=== PATIENT | female | born 1970 | race American Indian/Alaskan Native ===

== ENCOUNTER 2017-07-18 06:09 | Day surgery (SDC) | payer OTHER ==
[2017-07-11 14:17] VITALS: BMI 30.2
[2017-07-18] MEDS ORDERED: Lactated Ringer's 1,000 ML IV ONE ×2 (07:00→08:55)
[2017-07-18] MEDS ORDERED: ceFAZolin IV 2 gm in Dextrose 2 GM/50 ML BAG IVPB ONE (07:16)
[2017-07-18] MEDS ORDERED: Bupivacaine 0.5% Inj(30mL) IJ ONE (07:16)
[2017-07-18] MEDS ORDERED: Lidocaine 1% Inj (20ml) IJ ONE (07:16)
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
--- NOTE | 2017-07-18 07:22 | CP.SDSHP ---
Same Day Surgery H & P - History Proposed Procedure: left ankle fibula ORIF, Brostrum Raymundo procedure - Previous Medical/Surgical History Cardiac: Hypertension Previous Surgical History: none - Allergies Allergies: Allergies No Known Allergies Allergy (Verified 07/11/17 14:17) - Physical Exam General Appearance: well nourished, in NAD Vital Signs: Vital Signs 07/18/17 07/18/17 06:36 06:39 Temperature 98.6 F Pulse Rate 108 H 108 H Respiratory 20 Rate Blood Pressure 129/89 O2 Sat by Pulse 100 Oximetry Mental Status: Alert & Oriented x3 Neuro: WNL - {Optional Preform as Required} Integument: WNL Ortho: Other (tenderness elicited on left active ankle dorsiflexion and plantarflexion) - Impression Impression: Pt was seen and examined in SDS. Pt NPO status was confirmed. All pre-op testing and clearance in chart. Pt has exhausted all conservative treatment at this time and is opting for surgical intervention. Pt was explained procedure and post-operative course. All pt's questions were answered to satisfaction. No guarantees were made. Pt understands all risks, benefits and complications of procedure. Pt will follow-up with Dr. Flynn within 1 week of surgery Short Stay Discharge - Short Stay Discharge Admitting Diagnosis/Reason for Visit: S93.936D/M91.897H Disposition: HOME/ ROUTINE Referrals: Cherry Cade MD [Primary Care Provider] - Instructions: Cephalexin (By mouth), Acetaminophen/Codeine (By mouth), RICE Therapy (GEN) Additional Instructions (Diet, Activity): -Patient in good/stable condition for discharge home -Pt to resume medications per medical reconciliation -Resume regular diet Please keep dressing clean, dry, & intact to surgical site -Use plastic bag over bandage for showering -Wear post op shoe at all times when ambulating -Call clinic if you seesigns of infection (redness, swelling, malodor) -Please make an appointment to see Dr. Flynn in office/clinic within 1 week for post-op check Progress Note/Discharge Note with Instructions: - Patient evaluated bedside in recovery s/p surgical procedure. - After surgical procedure patient in NAD - (+) Void, (+) Appetite - Capillary refill time <3s and NVSI intact. - Patient denies complaints at this time - Post operative instructions and plan of care explained to patient at length. - Pt. acknowledges understanding. - Patient stable for DC per podiatric surgery
[2017-07-18] MEDS ORDERED: Midazolam 2 MG/2 ML VIAL ONE (07:23)
[2017-07-18] MEDS ORDERED: Propofol 10 mg/ml Inj (20 ML) ONE (07:23)
[2017-07-18] MEDS ORDERED: ePHEDrine 50 mg/ml Inj ONE (07:23)
[2017-07-18] MEDS ORDERED: Rocuronium 10 mg/ml (5 ml) ONE (07:24)
[2017-07-18] MEDS ORDERED: Lidocaine 4% (Laryng-O-Jet) Kit MM ONE (07:24)
[2017-07-18] MEDS ORDERED: Succinylcholine 200 mg/10 ml Inj IV ONE (07:24)
[2017-07-18] MEDS ORDERED: Ropivacaine 0.5% 30ML IV ONE (07:27)
[2017-07-18] MEDS ORDERED: ceFAZolin IV 1 gm in Dextrose 2 GM/100 ML BAG IVPB ONE (07:29)
[2017-07-18] MEDS ORDERED: Sodium Chloride 0.9% 1,000 ML IV SCH (07:30)
[2017-07-18] MEDS ORDERED: Dexamethasone 4 mg/1 ml ONE (08:27)
[2017-07-18] MEDS ORDERED: Sevoflurane - Inhalation Anesthetic Liq (250 ml) ONE (08:36)
[2017-07-18] MEDS ORDERED: Bupivacaine 0.5% Inj(30mL) ONE (10:12)
--- NOTE | 2017-07-18 10:48 | PCM.SURG1 ---
Surgeon's Initial Post Op Note - Surgeon's Notes Surgeon: Dr. Rico Flynn Shank Sander: Shahram Prince PGY-3, Thania Sharpe PGY-2, Jonathan Sue PGY-1 Type of Anesthesia: Block Regional Anesthesia Administered By: Dr. Velasquez Pre-Operative Diagnosis: left lateral ankle ligament tear, left fibula fracture Operative Findings: see operative report. I: 20cc 0.5% Marcaine postoperatively. M: 2-0 fiberwire, 3-0 Vicryl, 4-0 Vicryl, 2-0 Nylon, bone DMX 2.5, 6 hole fibular plate - screw sizes 3.5x12, 4.0x18, two 3.5x10 Post-Operative Diagnosis: same Operation Performed: left lateral ankle stabilization with Brostrum Raymundo procedure, left fibula open reduction and internal fixation Specimen/Specimens Removed: none Estimated Blood Loss: EBL {In ML}: 5 Blood Products Given: N/A Drains Used: No Drains Post-Op Condition: Good Date of Surgery/Procedure: 07/18/17 Time of Surgery/Procedure: 08:30
[2017-07-18] MEDS ORDERED: Acetaminophen-Codeine 300/30 mg Tab PO PRN (10:49)
[2017-07-18] MEDS ORDERED: HYDROmorphone 0.5 mg/0.5 ml ISec IVP PRN (11:05)
--- NOTE | 2017-07-18 11:07 | PCM.ANESB2 ---
Popliteal Nerve Block - Popliteal Nerve Block Date of Procedure: 07/18/17 Anesthesiologist: Eva Pre-Procedure Diagnosis: Left ankle fracture Post-Procedure Diagnosis: Left ankle fracture Procedure Performed: Popliteal Nerve Block Left - Procedure Popliteal Nerve Block: This procedure was explained to the patient that it is for post-operative pain management. Consent was obtained after a thorough discussion with the patient regarding the benefits and possible complications of local anesthetic block of the sciatic nerve at the popliteal level. The patient was brought to the operating room and standard monitors are applied. Time-out was held with the circulating nurse to confirm the correct surgery and the appropriate block. After applying oxygen by nasal cannula and administering IV Sedation, patient's operative leg was gently raised and supported and the groove in between the biceps femoris and vastus lateralis muscles was carefully palpated. The skin approximately 8cm above the popliteal crease was then marked. The ultrasound transducer was then applied to the posterior thigh approximately 8cm above the popliteal crease in the transverse plane and the sciatic nerve before its division was visualized lateral to the popliteal artery and in between the bicep femoris and semimembranosus/semitendinosus muscles. After identification, the lateral portion of the thigh was prepped with Betadine solution three times and Lidocaine 1% was injected subcutaneously for topical anesthesia. At this point, a # 21 gauge Stimuplex insulated 4 inch needle was inserted into pre-marked area and advanced in a perpendicular direction. The needle was inserted above the ultrasound transducer in-plane towards the sciatic nerve in a [id number] direction. Needle advancement was performed carefully under direct ultrasound visualization. Nerve stimulator was used and dorsiflexion of the left foot was elicited at a current of 0.3 MA. After repeated negative aspiration,20 cc of 0.25 % Bupivicaine with epinephrine was injected. Under ultrasound guidance the local anesthetics were observed surrounding sciatic nerve . The needle was removed intact and sterile dressing was applied. The patient tolerated the popliteal nerve block well with stable vital signs and was subsequently prepared for the surgery.
[2017-07-18] MEDS ORDERED: Lactated Ringer's 1,000 ML IV SCH (11:15)
[2017-07-18 12:52] VITALS: RESP 18
[2017-07-18 13:41] VITALS: O2SAT 100
--- NOTE | 2017-07-18 14:14 | RAD ---
PROCEDURE: Internal fixation HISTORY: LEFT ANKLE ORIF COMPARISON: None TECHNIQUE: Submitted images from the current procedure: 4.0 FINDINGS: IMPRESSION: Total fluoroscopic time (continuous mode) utilized during the procedure: 31.4 seconds.
[2017-07-18 16:05] VITALS: BP 109/64; PULSE 100; TEMP 98.2
--- NOTE | 2017-07-18 17:43 | RAD ---
PROCEDURE: Left Ankle Radiographs. HISTORY: s/p left ankle surgery COMPARISON: None FINDINGS: BONES: Satisfactory alignment of major fracture fragments distal left fibula. No evidence of orthopedic hardware failure. JOINTS: Normal. No osteoarthritis. Ankle mortise maintained. Talar dome intact SOFT TISSUES: Normal. OTHER FINDINGS: None. IMPRESSION: Satisfactory postoperative status. No evidence of orthopedic hardware failure. Limitations of the current study: Detail obscured by overlying fiberglass cast.
--- NOTE | 2017-07-24 07:49 | OP ---
PROCEDURE DATE: 07/18/2017 PREOPERATIVE DIAGNOSES: 1. Left ankle fibular fracture. 2. Left ankle, lateral ankle sprain. POSTOPERATIVE DIAGNOSES: 1. Left ankle fibular fracture. 2. Left ankle, lateral ankle sprain. PROCEDURE: 1. Left ankle fibular fracture open reduction and internal fixation. 2. Left ankle open repair of lateral ankle ligament. SURGEON: Rico Flynn DPM SUPPLY REQUIREMENTS OFFICER: 1. Dr. Shharam Prince, PGY-3. 2. Dr. Thania Sharpe, PGY-2. 3. Dr. Jonathan Sue, PGY-1. TYPE OF ANESTHESIA: General sedation. INDICATIONS: This patient is a 46-year-old female with the aforementioned diagnoses. The patient was seen by Dr. Flynn in his office where she has been treated on an outpatient basis after suffering a traumatic left ankle injury. The patient seeks surgical intervention at this time. All alternatives, benefits, complications, and risks of surgical procedure were explained to the patient at length. The patient verbalized understanding and wished to proceed. All questions were addressed and answered. No guarantees were given nor implied. The consent was signed, and n.p.o. status was confirmed prior to bringing the patient to the operating room. OPERATIVE PROCEDURE: The patient was brought to the operating room and placed on the operating room table in the supine position. A pneumatic thigh tourniquet was placed around the patient's left thigh. After induction of general sedation, the left leg and ankle were then prepped and draped in the normal sterile manner and the procedure began. PROCEDURE #1: Left ankle open reduction and internal fixation of fibular fracture. Attention was directed to the lateral aspect of the patient's left ankle where a linear longitudinal incision was made with a 15-blade directly overlying the distal aspect of the fibula. Dissection was then carried down to the superficial and subcutaneous tissue utilizing sharp and blunt dissection. Care was taken to retract all vital neurovascular structures throughout the duration of the procedure. All superficial bleeding vessels were cauterized utilizing electrocautery. At this time, intraoperative fluoroscopy was utilized to locate the level of the fracture. The fracture through fibula was noted to be transverse in orientation. Dissection was then carried down to the level of the periosteum, and a #15 blade was utilized to make a linear longitudinal incision through the periosteum overlying the distal aspect of the fibula. Next, utilizing a Dobbs elevator and #15 blade, the periosteum were freed from the distal aspect of the fibula. At this time, the fracture site could be clearly visualized. The fracture site was then cleared of any bony or soft tissue debris utilizing a dental pick and curette. The fracture site was then flushed with copious amounts of sterile normal saline. Next, utilizing 2 bone clamps, the fibular fracture was pulled out to length and rotated back in an anatomical alignment and temporarily clamped. Intraoperative fluoroscopy was then utilized to confirm appropriate reduction of the fracture. Because of the transverse orientation of the fracture site, it was noted that interfragmentary screw could not be utilized in this case. Next, a Synthes 6-hole 1/3 tubular plate was applied to the lateral aspect of the fibula spanning the fracture. First, the plate was fixated to the proximal fracture fragment using a 3.5 mm fully threaded cortical screw. The fracture was then fixated through the distal fracture fragment in the distal most plate hole utilizing a 4.0 mm fully threaded cancellous screw. Intraoperative fluoroscopy was then again utilized and it was noted at this time that the plate and screws were in appropriate anatomic location and the fracture site had been adequately reduced. Next, the second plate hole distal to the fracture site was attempted to be filled with a 4.0 mm cancellous screw, but at this time, due to the patient's bone quality and location of the fracture fragment, the screw was unable to purchase. Attention was then directed to the 2 remaining plate holes proximal to the fracture site and they were filled with two 3.5 mm fully threaded cortical Synthes screws inserted utilizing standard AO technique and tightened to two finger tightness. At this time, it was noted that all screws had been adequately inserted and there was appropriate positioning and location of the internal fixation and adequate reduction of the fracture site. The surgical area was then flushed with copious amounts of sterile normal saline. PROCEDURE # 2: Left ankle open repair of lateral ankle ligament. Utilizing the same surgical incision, #15 blade was utilized to extend the surgical incision distally over the lateral ankle ligament and the anterior distal aspect of the fibula. The incision was deepened through the superficial and subcutaneous tissues utilizing sharp and blunt dissection. Care was taken to retract all vital neurovascular structures throughout the duration of the procedure. All superficial bleeding vessels were cauterized utilizing electrocautery. Dissection was then carried down to the level of the anterior retinaculum and anterior talofibular ligament. It was noted at this time that the ATFL was torn and frayed and there was instability at this level. A #15 blade was then utilized to clean any frayed degenerated ends of the ligament. Next utilizing 2-0 FiberWire suture, the ATFL was repaired with the extensor retinaculum in a fashion . It was noted at this time that the lateral ankle ligament had been adequately repaired and there was no longer instability. The surgical area was then flushed with copious amounts of sterile normal saline. At this time, the periosteal and capsular layers were reapproximated utilizing 2-0 Vicryl suture. The subcutaneous tissues were then reapproximated utilizing 4-0 Vicryl suture. The skin was then reapproximated utilizing 2-0 nylon suture. Intraoperative injections consisted of 20 mL of 0.5% Marcaine plain. Postoperative dressings consisted of Xeroform, DSD, Denise, cast padding, a posterior splint, and Tono bandages. POSTOPERATIVE CONDITION: The patient tolerated the procedure and anesthesia well with no apparent complications or complaints. The patient was escorted from the OR to the recovery room with vital signs stable and neurovascular status intact. The patient will follow up with Dr. Flynn in his office on an outpatient basis. Shahram Prince DPM
== END 2017-07-18 18:17 | disposition home or self-care (01) ==
LOC: H.OPSURG 06:09
PROVIDERS: ATTEND Podiatrist Foot & Ankle Surgery
DX: S93.412D Sprain of calcaneofibular ligament of left ankle, subsequent encounter (principal); I10 Essential (primary) hypertension; X58.XXXA Exposure to other specified factors, initial encounter
CPT/HCPCS: 27814; 73610; 97116; 97161; C1713; C1769; G8978; G8979; G8980; J0330; J0690; J1100; J2001; J2250; J2405; J2704; J2765; J3010; J7040; J7120